=== PATIENT | female | born 1970 ===

== ENCOUNTER → 2023-06-12 | Outpatient (CLI) | payer OTHER | END | disposition home or self-care (01) | LOC: LAB 10:45 → LAB SHORT 10:45 | DX: Z13.1 Encounter for screening for diabetes mellitus (principal); Z13.220 Encounter for screening for lipoid disorders; Z13.228 Encounter for screening for other metabolic disorders; Z13.21 Encounter for screening for nutritional disorder; Z13.29 Encounter for screening for other suspected endocrine disorder; N95.9 Unspecified menopausal and perimenopausal disorder; J30.9 Allergic rhinitis, unspecified; Z90.5 Acquired absence of kidney | CPT/HCPCS: 85651 ==